=== PATIENT | male | born 1950 | race Caucasian/White ===

== ENCOUNTER → 2017-08-25 09:30 | Outpatient (CLI) | payer OTHER, SELFPAY ==
[2017-08-25 10:28] LABS: Add Manual Diff / Slide Review NO; Basophils Percent Auto 1.6 % (0-2); Eosinophils Percent Auto 3.4 % (2-4); Hematocrit 34.9 % (41-53); Hemoglobin 12.1 g/dL (13.5-17.5); Lymphocytes Percent Auto 20.3 % (25-40); Mean Corpuscular HGB Conc 34.8 % (30-36); Mean Corpuscular Hemoglobin 31.7 PG (26-34); Monocytes Percent Auto 12.2 % (3-14); Neutrophils Absolute Auto 3800 /uL (3000-5900); Neutrophils Percent Auto 62.5 % (50-75); Platelet Count 189 X10^3/uL (150-400); Red Blood Cell Count 3.84 X10^6/uL (4.5-5.9); Red Cell Distribution Width 15.4 % (11.6-14.8); White Blood Cell Count 6.1 X10^3/uL (4.5-11.0)
[2017-08-25 11:11] LABS: Alanine Aminotransferase 62 IU/L (21-72); Albumin 4.5 g/dL (3.5-5.0); Albumin Globulin Ratio 1.6 (1.0-2.8); Alkaline Phosphatase 80 U/L (38-126); Aspartate Aminotransferase 35 IU/L (17-59); BUN Creatinine Ratio 20.9 (6-22); Bilirubin Total 1.2 mg/dL (0.2-1.3); Cholesterol 119 mg/dL (140-199); Estimated Glomerular Filt Rate > 60.0 mL/min (>60); Globulin 2.9 g/dL (1.7-4.1); Glucose 106 mg/dL (80-110); HDL Cholesterol 34 mg/dL (40-60); HEMOLYSIS < 15 (0-50); LDL Cholesterol Calculated 60 mg/dL (<100); Sodium 140 mmol/L (137-145); Total Protein 7.4 g/dL (6.3-8.2); Triglycerides 126 mg/dL (35-150); Uric Acid 6.6 mg/dL (3.5-8.5)
[2017-08-25 11:24] LABS: Vitamin D 25 Hydroxy (D3) 77.7 ng/mL (30.0-100.0)
[2017-08-25 11:25] LABS: Free T4, Direct Thyroxine 1.11 ng/dL (0.78-2.19)
[2017-08-25 11:38] LABS: Prostate Specific Antigen 0.609 ng/mL (0.10-4.00)
[2017-08-28 01:50] LABS: Hemoglobin A1C% w Est Avg Glu 5.6 % (4.0-6.0)
== END ==
PROVIDERS: Family Provider Internal Medicine Cardiovascular Disease; PCP Family Medicine; Visit Provider Family Medicine
DX: I10 Essential (primary) hypertension (principal); E78.5 Hyperlipidemia, unspecified; E03.9 Hypothyroidism, unspecified; E78.00 Pure hypercholesterolemia, unspecified; M10.9 Gout, unspecified; E55.9 Vitamin D deficiency, unspecified; Z12.5 Encounter for screening for malignant neoplasm of prostate; R73.9 Hyperglycemia, unspecified
CPT/HCPCS: 36415; 80053; 80061; 82306; 83036; 84153; 84439; 84443; 84550; 85025

== ENCOUNTER 2017-09-24 10:00 | Outpatient (RCR) | payer OTHER, SELFPAY | END 2017-10-01 15:16 | LOC: CAR 10:00 | PROVIDERS: Family Provider Family Medicine; PCP Family Medicine; Visit Provider Internal Medicine Cardiovascular Disease | DX: I21.3 ST elevation (STEMI) myocardial infarction of unspecified site (principal) | CPT/HCPCS: 93798 ==

== ENCOUNTER → 2018-02-08 14:07 | Outpatient (CLI) | payer MEDICARE, OTHER, SELFPAY ==
[2018-02-08 14:25] LABS: Hematocrit 38.8 % (41-53); Hemoglobin 13.3 g/dL (13.5-17.5); Mean Corpuscular HGB Conc 34.2 % (30-36); Mean Corpuscular Hemoglobin 31.6 PG (26-34); Mean Corpuscular Volume 92.2 fL (80-100); Platelet Count 187 X10^3/uL (150-400); Red Blood Cell Count 4.21 X10^6/uL (4.5-5.9); Red Cell Distribution Width 13.7 % (11.6-14.8); White Blood Cell Count 6.4 X10^3/uL (4.5-11.0)
[2018-02-08 14:43] LABS: Reticulocyte Count, Percent 1.2 % (0.87-2.60)
[2018-02-08 15:02] LABS: HEMOLYSIS < 15 (0-50); Iron 67 ug/dL (49-181)
[2018-02-08 15:16] LABS: Percent Iron Saturation 22 % (20-50); Total Iron Binding Capacity 298 ug/dL (261-462); Transferrin 223 mg/dL (206-381)
[2018-02-08 16:11] LABS: Folate 12.2 ng/mL (2.76-20.0); Vitamin B12 341 pg/mL (239-931)
== END ==
PROVIDERS: Family Provider Family Medicine; PCP Student in an Organized Health Care Education/Training Program; Visit Provider Student in an Organized Health Care Education/Training Program
DX: D64.9 Anemia, unspecified (principal); K92.2 Gastrointestinal hemorrhage, unspecified
CPT/HCPCS: 36415; 82607; 82728; 82746; 83540; 83550; 85027; 85045

== ENCOUNTER → 2018-08-20 13:47 | Outpatient (CLI) | payer MEDICARE, OTHER, SELFPAY ==
--- NOTE | 2018-08-20 09:00 | DI.ECHO.S_ITS ---
Echocardiogram Report + + :Name: SESAR DYE Study Date: 08/20/2018 Height: 70 in : :[facility] Exam Location: [facility] Weight: 190 lb : : Gender: Male BSA: 2.0 m2 : :: 1950 Age: 67 yrs BP: 120/70 mmHg: :Reason For Study: CAD : :Ordering Physician: Pranay Condon : :Lora Performed By: Shruthi Page : + + Interpretation Summary 1) Normal left ventricular thickness and size with low normal function (EF 50- 55%). 2) The apical cap extending to the distal inferior wall and the distal inferoseptum are akinetic. 3) Normal right ventricular size and function. 4) No significant valvular abnormalities. 5) Compared to the Echo done 07/17/2017, LVEF has improved significantly. Procedure: A two-dimensional transthoracic echocardiogram with color flow and Doppler was performed. The study quality was technically adequate. Comparison is made with the echocardiogram of 07/17/2017. The patient was in normal sinus rhythm during the exam. Left Ventricle: The left ventricle is normal in size. There is normal left ventricular wall thickness. There is no thrombus. The ejection fraction is estimated to be 50-55%. The apical cap extending to the distal inferior wall and the distal inferoseptum are akinetic. Right Ventricle: The right ventricle is normal in size and function. Atria: The left atrium is moderately dilated. Right atrial size is normal. There is no Doppler evidence for an interatrial shunt. Mitral Valve: The mitral valve leaflets appear mildly thickened, but open well. There is mild mitral regurgitation. Aortic Valve: The aortic valve is trileaflet. The aortic valve is mildly calcified. The aortic valve opens well. There is no aortic valve stenosis. There is trace aortic regurgitation. Tricuspid Valve: The tricuspid valve is normal in structure and function. There is trace tricuspid regurgitation. The right ventricular systolic pressure is estimated to be at least 26 mmHg based on an estimated right atrial pressure of 3 mm Hg. Pulmonic Valve: The pulmonic valve is not well visualized. There is a trace or physiologic amount of pulmonic regurgitation. Great Vessels: The aortic root is normal size. The ascending aorta is mildly enlarged. The pulmonary artery is not well visualized, but is probably normal size. The IVC is of normal diameter and collapses greater than 50% with a sniff. This suggests a low right atrial pressure of 3 mm Hg. Pericardium/ Pleura There is no pericardial effusion. There is no pleural effusion. MMode/2D Measurements & Calculations LVIDd: 5.4 cm LVOT diam: 2.1 cm LVIDs: 3.0 cm Ao root diam: 3.6 cm FS: 44.6 % asc Aorta Diam: 3.5 cm EPSS: 0.40 cm IVSd: 0.75 cm LVPWd: 0.87 cm LV delgado. diameter/BSA (cm/m^2): 2.7 LV sys. diameter/BSA (cm/m^2): 1.5 LA A2 area: 24.1 cm2 RA long axis: 4.4 cm LA A4 area: 23.0 cm2 RA area: 15.6 cm2 LA length (vol): 5.3 cm RA vol: 47.0 ml LA vol: 88.8 ml RA : 23.0 ml/m2 LA vol index: 43.5 ml/m2 IVC diam: 1.8 cm RVD1 (basal): 4.1 cm RVD2 (mid): 3.3 cm TAPSE: 3.1 cm Doppler Measurements & Calculations Ao V2 max: 152.9 cm/sec LVOT Max Renato: 113.6 cm/sec Ao V2 mean: 110.2 cm/sec LV V1 max P.2 mmHg Ao max P.4 mmHg LV V1 VTI: 22.4 cm Ao mean P.3 mmHg MICHELLE(I,D): 2.5 cm2 Ao V2 VTI: 31.2 cm MICHELLE(V,D): 2.6 cm2 sev ratio: 0.72 MICHELLE indexed to BSA (cm^2/m^2): 1.2 MV E max renato: 76.8 cm/sec TR max renato: 237.1 cm/sec MV A max renato: 79.9 cm/sec TR max P.5 mmHg MV E/A: 0.96 PA V2 max: 98.9 cm/sec Med Peak E' Renato: 7.1 cm/sec PA V2 mean: 69.3 cm/sec E/E' med: 10.8 PA mean P.1 mmHg Lat Peak E' Renato: 5.8 cm/sec PA Accel Time: 0.10 sec E/E' lat: 13.3 E/e' average: 12.0 MV dec time: 0.21 sec MV P1/2t: 62.3 msec MV P1/2t max renato: 78.0 cm/sec SV(LVOT): 78.1 ml MVA(P1/2t): 3.5 cm2 _ Reading Physician:04:01 PM
== END ==
PROVIDERS: PCP Student in an Organized Health Care Education/Training Program; Visit Provider Internal Medicine Cardiovascular Disease
DX: I34.0 Nonrheumatic mitral (valve) insufficiency (principal); I25.10 Atherosclerotic heart disease of native coronary artery without angina pectoris
CPT/HCPCS: 93306

== ENCOUNTER → 2018-08-31 09:23 | Outpatient (CLI) | payer MEDICARE, OTHER, SELFPAY ==
[2018-08-31 10:29] LABS: Add Manual Diff / Slide Review NO; Basophils Absolute Auto 100 /uL (0-100); Eosinophils Absolute Auto 300 /uL (0-450); Eosinophils Percent Auto 3.7 % (2-4); Hematocrit 39.7 % (41-53); Hemoglobin 13.6 g/dL (13.5-17.5); Lymphocytes Absolute Auto 1300 /uL (1100-4500); Lymphocytes Percent Auto 19.8 % (25-40); Mean Corpuscular HGB Conc 34.2 % (30-36); Mean Corpuscular Hemoglobin 31.6 PG (26-34); Mean Corpuscular Volume 92.3 fL (80-100); Monocytes Absolute Auto 600 /uL (0-900); Monocytes Percent Auto 8.5 % (3-14); Neutrophils Absolute Auto 4600 /uL (1500-7000); Platelet Count 190 X10^3/uL (150-400); Red Cell Distribution Width 13.6 % (11.6-14.8); White Blood Cell Count 6.8 X10^3/uL (4.5-11.0)
[2018-08-31 11:27] LABS: Blood Urea Nitrogen 21 mg/dL (9-20); Calcium 9.8 mg/dL (8.4-10.2); Carbon Dioxide 28 mmol/L (22-32); Chloride 103 mmol/L (98-107); Cholesterol 128 mg/dL (140-199); Estimated Glomerular Filt Rate > 60.0 mL/min (>60); Glucose 122 mg/dL (80-110); HDL Cholesterol 40 mg/dL (40-60); HEMOLYSIS < 15 (0-50); LDL Cholesterol Calculated 64 mg/dL (<100); Potassium 5.4 mmol/L (3.4-5.1); Sodium 140 mmol/L (137-145); Triglycerides 118 mg/dL (35-150)
== END ==
PROVIDERS: Family Provider Student in an Organized Health Care Education/Training Program; PCP Student in an Organized Health Care Education/Training Program; Visit Provider Internal Medicine Cardiovascular Disease
DX: I10 Essential (primary) hypertension (principal); E78.5 Hyperlipidemia, unspecified; I21.3 ST elevation (STEMI) myocardial infarction of unspecified site; K92.2 Gastrointestinal hemorrhage, unspecified; E78.00 Pure hypercholesterolemia, unspecified; I25.10 Atherosclerotic heart disease of native coronary artery without angina pectoris; K21.9 Gastro-esophageal reflux disease without esophagitis; I25.2 Old myocardial infarction
CPT/HCPCS: 36415; 80048; 80061; 85025

== ENCOUNTER → 2018-08-31 09:28 | Outpatient (CLI) | payer MEDICARE, OTHER, SELFPAY | PROVIDERS: PCP Student in an Organized Health Care Education/Training Program; Visit Provider Student in an Organized Health Care Education/Training Program ==

== ENCOUNTER → 2018-09-11 13:15 | Outpatient (CLI) | payer MEDICARE, OTHER, SELFPAY ==
[2018-09-11 15:28] LABS: BUN Creatinine Ratio 20.9 (6-22); Blood Urea Nitrogen 23 mg/dL (9-20); Calcium 9.8 mg/dL (8.4-10.2); Carbon Dioxide 31 mmol/L (22-32); Chloride 100 mmol/L (98-107); Estimated Glomerular Filt Rate > 60.0 mL/min (>60); Glucose 98 mg/dL (80-110); HEMOLYSIS < 15 (0-50); Potassium 4.8 mmol/L (3.4-5.1); Sodium 140 mmol/L (137-145)
== END ==
PROVIDERS: PCP Student in an Organized Health Care Education/Training Program; Visit Provider Internal Medicine Cardiovascular Disease
DX: I10 Essential (primary) hypertension (principal)
CPT/HCPCS: 36415; 80048

== ENCOUNTER 2018-10-14 12:51 | Day surgery (SDC) | payer MEDICARE, OTHER, SELFPAY ==
--- NOTE | 2018-10-14 | PATH_ITS ---
[facility] Accession Number: [id number] . 01 Material submitted: . PART A: colon - POLYP AT 40 CM PART B: colon - POLYP AT 30 CM . 02 Diagnosis: A. Colon at 40 cm, Polyp: Tubular adenoma. . B. Colon at 30 cm, Polyp: Tubular adenoma. MRV/10/16/2018 . 02 Electronically signed: . Kemal Fernandes MD, PhD, Pathologist NPI- [id number] . 01 Gross description: . Part A: POLYP AT 40 CM: Received in formalin is 1 fragment(s) of clark, soft tissue measuring 0.5 x 0.3 x 0.1 cm submitted entirely in 1 cassette(s) Part B: POLYP AT 30 CM: Received in formalin are 3 fragment(s) of clark, soft tissue measuring 0.6 x 0.3 x 0.2 cm to 0.4 x 0.3 x 0.1 cm submitted entirely in 1 cassette(s) /CKI /CKI . 02 Pathologist provided ICD-10: D12.6 . 02 CPT . 666859, 412403 Performed at: 01 [facility] [address], [place], [place] [id number] MD Maycol Melgoza MD Phone: [phone] Performed at: 02 [facility] [address] [place], [place] [id number] MD Casie Ramírez MD Phone: [phone]
[2018-10-14 13:13] VITALS: BP 147/79; PULSE 50; RESP 16; TEMP 36.4; O2SAT 100; BMI 27.1
--- NOTE | 2018-10-14 13:31 | PM.HP.1 ---
History of Present Illness Date Patient Seen: 10/14/18 Time Patient Seen: 13:32 Chief complaint: [id number] Narrative: Patient is here for a screening colonoscopy has had polypectomy 5 years ago for benign disease. He is asymptomatic. It did have a heart attack May of 2017 and was on Plavix for 1 year which was discontinued in August of 2018 patient has no cardiac symptoms and has been cleared by his wallpaperer. Patient History Medical History Coronary artery disease involving [place] coronary artery of [place] heart without angina pectoris (Chronic 07/20/17) Essential hypertension (Chronic 07/20/17) Gout (Chronic 2009) History of myocardial infarction (Chronic 07/20/17) Acquired hypothyroidism (Chronic ~2004) Pure hypercholesterolemia (Chronic 07/20/17) GERD (gastroesophageal reflux disease) (Chronic Unknown) Chickenpox (Resolved ~1964) Colon polyps (Resolved 2002) Mumps (Resolved ~1962) Pericarditis (Resolved 2017) Surgical History History of coronary artery stent placement (Resolved 05/2017) Family History Father Heart disease Mother No problems noted. Grandfather No problems noted. Grandmother No problems noted. Grandfather No problems noted. Grandmother Cancer Sister No problems noted. Social History (System 07/26/17 @ 14:21 by Kathie Castillo) household members: spouse Smoking Status: Never smoker Family & Social History Family History Father Heart disease Mother No problems noted. Grandfather No problems noted. Grandmother No problems noted. Grandfather No problems noted. Grandmother Cancer Sister No problems noted. Social History: household members spouse Tobacco & Substance use: Smoking Status Never smoker Meds Home Medications Medication Instructions Recorded Confirmed Type VITAMIN D (Vitamin D3) 5,000 units PO DAILY #0 07/20/17 10/14/18 History atorvastatin 40 mg PO HS #0 07/20/17 10/14/18 History carvedilol 12.5 mg tablet 6.25 mg PO BID #0 tab 08/30/17 10/14/18 History aspirin 81 mg tablet,delayed 81 mg PO QDAY #30 tab 02/08/18 10/14/18 Rx release losartan 25 mg tablet 12.5 mg PO DAILY #15 tab 02/08/18 10/14/18 Rx allopurinol 100 mg tablet 100 mg PO BID #180 tab 08/29/18 10/14/18 Rx levothyroxine 112 mcg tablet 112 mcg PO QDAY #90 tab 08/29/18 10/14/18 Rx eplerenone 25 mg tablet 25 mg PO DAILY 09/09/18 10/14/18 History Allergies Allergy/AdvReac Type Severity Reaction Status Date / Time No Known Drug Allergies Allergy Verified 10/14/18 13:19 Review of Systems Cardiovascular Cardiovascular: Reports as per HPI Gastrointestinal Gastrointestinal: Reports as per HPI Exam Vital Signs (past 8 hours): - 10/14/18 13:13 Temperature 97.5 F L Pulse Rate 50 L Respiratory Rate 16 Blood Pressure 147/79 H Pulse Oximetry 100 Oxygen Delivery Method Room Air Narrative Exam Narrative: Patient is alert and oriented asymptomatic. Vital signs are stable. Lungs are clear with no rales or wheezes Heart regular rhythm no murmur Abdomen soft and nontender no abdominal masses. Rectal will be done at time of colonoscopy. Assessment & Plan Assessment & Plan narrative: Patient with a significant cardiac history with stents placed in May of 2017 is off Plavix as of August of 2018. He has been cleared by his wallpaperer is asymptomatic regarding his heart. No exertional chest pain on climbing stairs. He had polyps removed 5 years ago at his most recent colonoscopy. He has no melena no hematochezia is here for screening.
--- NOTE | 2018-10-14 13:35 | P.HP_ITS ---
History of Present Illness Date Patient Seen: 10/14/18 Time Patient Seen: 13:32 Chief complaint: [id number] Narrative: Patient is here for a screening colonoscopy has had polypectomy 5 years ago for benign disease. He is asymptomatic. It did have a heart attack May of 2017 and was on Plavix for 1 year which was discontinued in August of 2018 patient has no cardiac symptoms and has been cleared by his criminal intelligence specialist. Patient History Medical History Coronary artery disease involving [place] coronary artery of [place] heart without angina pectoris (Chronic 07/20/17) Essential hypertension (Chronic 07/20/17) Gout (Chronic 2009) History of myocardial infarction (Chronic 07/20/17) Acquired hypothyroidism (Chronic ~2004) Pure hypercholesterolemia (Chronic 07/20/17) GERD (gastroesophageal reflux disease) (Chronic Unknown) Chickenpox (Resolved ~1964) Colon polyps (Resolved 2002) Mumps (Resolved ~1962) Pericarditis (Resolved 2017) Surgical History History of coronary artery stent placement (Resolved 05/2017) Family History Father Heart disease Mother No problems noted. Grandfather No problems noted. Grandmother No problems noted. Grandfather No problems noted. Grandmother Cancer Sister No problems noted. Social History (System 07/26/17 @ 14:21 by Kathie Castillo) household members: spouse Smoking Status: Never smoker Family & Social History Family History Father Heart disease Mother No problems noted. Grandfather No problems noted. Grandmother No problems noted. Grandfather No problems noted. Grandmother Cancer Sister No problems noted. Social History: household members spouse Tobacco & Substance use: Smoking Status Never smoker Meds Home Medications Medication Instructions Recorded Confirmed Type VITAMIN D (Vitamin D3) 5,000 units PO DAILY #0 07/20/17 10/14/18 History atorvastatin 40 mg PO HS #0 07/20/17 10/14/18 History carvedilol 12.5 mg tablet 6.25 mg PO BID #0 tab 08/30/17 10/14/18 History aspirin 81 mg tablet,delayed 81 mg PO QDAY #30 tab 02/08/18 10/14/18 Rx release losartan 25 mg tablet 12.5 mg PO DAILY #15 tab 02/08/18 10/14/18 Rx allopurinol 100 mg tablet 100 mg PO BID #180 tab 08/29/18 10/14/18 Rx levothyroxine 112 mcg tablet 112 mcg PO QDAY #90 tab 08/29/18 10/14/18 Rx eplerenone 25 mg tablet 25 mg PO DAILY 09/09/18 10/14/18 History Allergies Allergy/AdvReac Type Severity Reaction Status Date / Time No Known Drug Allergies Allergy Verified 10/14/18 13:19 Review of Systems Cardiovascular Cardiovascular: Reports as per HPI Gastrointestinal Gastrointestinal: Reports as per HPI Exam Vital Signs (past 8 hours): - 10/14/18 13:13 Temperature 97.5 F L Pulse Rate 50 L Respiratory Rate 16 Blood Pressure 147/79 H Pulse Oximetry 100 Oxygen Delivery Method Room Air Narrative Exam Narrative: Patient is alert and oriented asymptomatic. Vital signs are stable. Lungs are clear with no rales or wheezes Heart regular rhythm no murmur Abdomen soft and nontender no abdominal masses. Rectal will be done at time of colonoscopy. Assessment & Plan Assessment & Plan narrative: Patient with a significant cardiac history with stents placed in May of 2017 is off Plavix as of August of 2018. He has been cleared by his criminal intelligence specialist is asymptomatic regarding his heart. No exertional chest pain on climbing stairs. He had polyps removed 5 years ago at his most recent colonoscopy. He has no melena no hematochezia is here for screening.
--- NOTE | 2018-10-14 13:37 | SUR.OPER ---
GLASSES IN LABELED BAG TO PACU WITH PATIENT
[2018-10-14] MEDS: fentaNYL 250 MCG/5 ML INJ IV (13:47)
[2018-10-14] MEDS: MIDAZOLAM 5 MG/5 ML VIAL IV (13:48)
--- NOTE | 2018-10-14 14:08 | PM.OP.ENDO ---
Operative Date/Time/Diagnoses Date of procedure: 10/14/18 Time of procedure: 14:08 Pre-op diagnosis: Screening colonoscopy history of polyps Post-op diagnosis: other (Two very small polyps removed at 40 and 30 cm. There were flat sessile 2-3 mm in diameter. They were removed with the cold forceps) Procedure & Clinicians Study performed: Total colonoscopy the cecum and polypectomy at 40 and 30 cm Same procedure as scheduled: Yes Indications: History of polyps 5 years ago Surgeon: Aristides Lane Procedure Notes SCOAP/Timeout: Was done Procedure in detail: The patient was properly identified during surgical pause. He was given a total of 5 mg of Versed and 200 micro g of fentanyl throughout the procedure. He was very comfortable throughout the procedure. The flexible fiberoptic colonoscope was inserted transanally to the cecum patient has mckeon diverticulosis. He also had 2 sessile polyps 1 at 40 cm the other at 30 cm. These were between 2 and 3 mm. They were removed with the cold forceps. There were submitted separately. The procedure was well tolerated. Scope withdrawal time: 12 Sedation minutes: 27 Findings: polyp Specimen(s): other (Sessile polyps 1 at 40 the other at 30 cm) Complications: none Recommendations: Colonscopy in 3 years Disposition: PACU
[2018-10-14 14:12] VITALS: BP 122/67; PULSE 54; RESP 14; TEMP 36.4; O2SAT 98
[2018-10-14 14:17] VITALS: BP 117/67; PULSE 63; RESP 14; TEMP 36.4; O2SAT 99
[2018-10-14 14:20] VITALS: BP 120/66; PULSE 60; RESP 14; TEMP 36.9; O2SAT 100
--- NOTE | 2018-10-14 14:21 | SUR.PHASEII ---
ns iv not started in MAR see i&o for infused total
== END 2018-10-14 14:30 | disposition home or self-care (01) ==
PROVIDERS: PCP Student in an Organized Health Care Education/Training Program; Visit Provider Surgery
PROC: 0DJD8ZZ Inspection of Lower Intestinal Tract, Via Natural or Artificial Opening Endoscopic (ICD-10-PCS; CPT 45378; principal; 2018-10-14 13:45)
DX: Z12.11 Encounter for screening for malignant neoplasm of colon (principal); K57.30 Diverticulosis of large intestine without perforation or abscess without bleeding; I25.10 Atherosclerotic heart disease of native coronary artery without angina pectoris; I10 Essential (primary) hypertension; I25.2 Old myocardial infarction; E03.9 Hypothyroidism, unspecified; E78.00 Pure hypercholesterolemia, unspecified; D12.6 Benign neoplasm of colon, unspecified
CPT/HCPCS: 45380; 88305; 99152; J2250; J3010